=== PATIENT | female | born 1950 | race Caucasian/White ===

== ENCOUNTER 2016-04-07 12:16 | Emergency (ER) | payer MEDICARE, MEDICAID ==
[~2016-04-07] VITALS: Ht 152.4 cm; Wt 51.3 kg
[2016-04-07] MEDS ORDERED: ONDANSETRON HCL/PF 4 MG/2 ML VIAL IVP ONE (14:30)
[2016-04-07] MEDS ORDERED: IV NS 0.9% 1,000 ML BAG IV ONE (14:30)
[2016-04-07] MEDS ORDERED: MORPHINE SULFATE INJ 2 MG/ML DISP.SYRIN IV ONE (14:30)
[2016-04-07] MEDS ORDERED: KETOROLAC TROMETHAMINE INJ 30 MG/ML VIAL IV ONE (14:30)
[2016-04-07 14:34] LABS: KETONES,URINE Negative (NEGATIVE); LEUKOCYTE ESTERASE ,URINE Trace (NEGATIVE); PH,URINE 5.5 (5.0-8.0)
[2016-04-07 14:38] LABS: ADD UA MICROSCOPIC YES; ADD URINE CULTURE NO
[2016-04-07] MEDS ORDERED: KETOROLAC TROMETHAMINE 15 MG/ML VIAL ONE (14:38)
[2016-04-07] MEDS ORDERED: IV NS 0.9% 1,000 ML ONE (14:39)
[2016-04-07] MEDS ORDERED: IV SET PRIMARY 1 EA INFUS.SET MC ONE (14:39)
[2016-04-07] MEDS ORDERED: ONDANSETRON HCL/PF 4 MG/2 ML VIAL ONE (14:39)
[2016-04-07 14:54] LABS: BASOPHILS % (AUTO) 0.4 % (0.0-2.0); DIFF TOTAL % 100 %; EOSINOPHILS % (AUTO) 0.6 % (0.0-6.0); HEMATOCRIT 38 % (33-45); HEMOGLOBIN 12.8 g/dL (11.5-14.8); LYMPHOCYTES # (AUTO) 2.5 /CMM (0.8-4.8); LYMPHOCYTES % (AUTO) 36.7 % (20.0-44.0); MEAN CORPUSCULAR HEMOGLOBIN 30 PG (26.0-33.0); MEAN CORPUSCULAR HGB CONC 34 g/dl (31.0-36.0); MEAN CORPUSCULAR VOLUME 88 fL (82-100); MONOCYTES # (AUTO) 0.4 /CMM (0.1-1.30); MONOCYTES % (AUTO) 5.9 % (2.0-12.0); NEUTROPHILS # (AUTO) 3.9 /CMM (1.8-8.9); NEUTROPHILS % (AUTO) 56.4 % (43.0-81.0); PLATELET COUNT (AUTO) 293 /CMM (150-450); RED BLOOD CELL COUNT(AUTO) 4.33 MIL/uL (4.0-5.2); WHITE BLOOD COUNT (AUTO) 6.9 K/uL (4.3-11.0)
[2016-04-07 14:56] LABS: CREATININE 0.7 mg/dL (0.6-1.3); POTASSIUM 3.8 mmol/L (3.5-5.1)
[2016-04-07 15:03] LABS: ALBUMIN 3.7 g/dL (3.4-5.0); BILIRUBIN,DIRECT 0.1 mg/dL (0.0-0.2); BILIRUBIN,TOTAL 0.4 mg/dL (0.2-1.0); INDIRECT BILIRUBIN 0.3 mg/dL (0.0-1.1); TOTAL PROTEIN, SERUM 7.8 g/dL (6.4-8.2)
[2016-04-07 15:33] VITALS: BP 120/74
== END 2016-04-07 15:33 | disposition home or self-care (01) ==
LOC: ER 12:19
DX: R10.9 Unspecified abdominal pain (principal); Z87.442 Personal history of urinary calculi
CPT/HCPCS: 36415; 80048-TC; 80076-TC; 81000-TC; 85025-TC; A4606; J1885; J2405; J7030; Z7610

== ENCOUNTER 2016-10-12 11:22 | Emergency (ER) | payer MEDICARE, MEDICAID ==
[~2016-10-12] VITALS: Ht 152.4 cm; Wt 49.9 kg
--- NOTE | 2016-10-12 11:45 | NUR ---
PT CAME IN FOR LOWER ABDOMINAL PAIN, BLOATING, BURNING URINATION x 3 WEEKS. AAOX3. NAD NOTED. PT COMPLAINS OF FREQUENT URINATION WELL. SEEN BY MD FOR EVAL. VSS. SAFETY AND COMFORT MEASURES PROVIDED. WILL MONITOR.
--- NOTE | 2016-10-12 12:20 | NUR ---
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
[2016-10-12 12:27] LABS: APPEARANCE,URINE Clear (CLEAR); BILIRUBIN,URINE Negative (NEGATIVE); BLOOD, URINE Small Ery/uL (NEGATIVE); COLOR,URINE Yellow (YELLOW); KETONES,URINE Negative (NEGATIVE); LEUKOCYTE ESTERASE ,URINE Negative (NEGATIVE); NITRITE, URINE Negative (NEGATIVE); PROTEIN,URINE Negative (NEGATIVE); UGLUCOSE Negative (NEGATIVE); UROBILINOGEN,URINE 0.2 EU/dL (0.2)
[2016-10-12 12:31] LABS: BASOPHILS % (AUTO) 0.4 % (0.0-2.0); EOSINOPHILS % (AUTO) 0.2 % (0.0-6.0); HEMATOCRIT 43 % (33-45); HEMOGLOBIN 13.8 g/dL (11.5-14.8); LYMPHOCYTES # (AUTO) 1.9 /CMM (0.8-4.8); MEAN CORPUSCULAR HEMOGLOBIN 28 PG (26.0-33.0); MEAN CORPUSCULAR HGB CONC 32 g/dl (31.0-36.0); MEAN CORPUSCULAR VOLUME 86 fL (82-100); MONOCYTES # (AUTO) 0.4 /CMM (0.1-1.30); MONOCYTES % (AUTO) 5.2 % (2.0-12.0); NEUTROPHILS # (AUTO) 4.6 /CMM (1.8-8.9); NEUTROPHILS % (AUTO) 66.2 % (43.0-81.0); PLATELET COUNT (AUTO) 254 /CMM (150-450); RED BLOOD CELL COUNT(AUTO) 5.01 MIL/uL (4.0-5.2); WHITE BLOOD COUNT (AUTO) 6.9 K/uL (4.3-11.0)
[2016-10-12 12:36] LABS: BACTERIA,URINE Few /HPF (None Seen); SQUAMOUS EPITHELIAL CELL,UR Few /HPF (None Seen); WBC,URINE 0-2 /HPF (0-3)
[2016-10-12 12:38] LABS: CALCIUM, SERUM 8.9 mg/dL (8.5-10.1); CREATININE 0.8 mg/dL (0.6-1.3); POTASSIUM 3.8 mmol/L (3.5-5.1)
[2016-10-12] MEDS: IV NS 0.9% 1,000 ML BAG IV ONE (12:45)
--- NOTE | 2016-10-12 12:52 | NUR ---
PT TAKEN TO CT.
--- NOTE | 2016-10-12 13:59 | NUR ---
Patient discharged to home in stable condition. Written and verbal after care instructions given. Patient verbalizes understanding of instruction.
[2016-10-12 14:00] VITALS: BP 128/85
== END 2016-10-12 14:13 | disposition home or self-care (01) ==
LOC: ER 11:25
DX: R10.30 Lower abdominal pain, unspecified (principal); R39.15 Urgency of urination; Z90.710 Acquired absence of both cervix and uterus; Z90.49 Acquired absence of other specified parts of digestive tract
CPT/HCPCS: 36415; 72128-TC; 80048-TC; 81000-TC; 85025-TC; 87086-TC; A4606; J7030; Z7610